=== PATIENT | male | born 1985 | race Caucasian/White ===

== ENCOUNTER 2017-02-21 13:10 | Emergency (ER) | payer MEDICAID ==
[2017-02-21] MEDS ORDERED: Diphtheria,Pertussis(Acell),Tetanus Vaccine 0.5 ML Syringe IM ONE (13:49)
--- NOTE | 2017-02-21 13:58 | EDM.PDOC ---
ED HPI GENERAL MEDICAL PROBLEM - General Chief Complaint: Eye Problems Stated Complaint: RIGHT EYE PAIN Time Seen by Provider: 02/21/17 13:46 Source of Information: Reports: Patient History Limitations: Reports: No Limitations - History of Present Illness INITIAL COMMENTS - FREE TEXT/NARRATIVE: HISTORY AND PHYSICAL: []31-year-old male presents with redness to his right eye History of Present Illness: [Patient states he was seen in a week ago and it of different state and only half his eye was red. He was not given any medications.] Review of Systems: As per history of present illness and below otherwise all systems reviewed and negative. Past medical history: As per history of present illness and as reviewed below otherwise noncontributory. Surgical history: As per history of present illness and as reviewed below otherwise noncontributory. Social history: No reported history of drug or alcohol abuse. Family history: As per history of present illness and as reviewed below otherwise noncontributory. Physical exam: Alert and oriented male answering questions appropriately complaint by his . HEENT: Atraumatic, normocehpalic, pupils reactive, negative for conjunctival pallor or scleral icterus, mucous membranes moist, throat clear, neck supple, nontender, trachea midline. Right eye is mildly edematous is beefy red. Watery no exudate. Lungs: Clear to auscultation, breath sounds equal bilaterally, chest non tender. Heart: S1S2, regular, negative for clicks, rubs, or JVD. Extremities: Atraumatic, negative for cords or calf pain. Neurovascular unremarkable. Neuro: Awake, alert, oriented. Cranial nerves II through XII unremarkable. Cerebellum unremarkable. Motor and sensory unremarkable throughout. Exam nonfocal. Discussed case with Dr. Chaudhry and he has agreed to see him at his clinic at 2: 45 PM Diagnostics: [] Therapeutics: [] Impression: [Infection to right eye] Plan: [Discharged to be evaluated at [facility] ] Definitive disposition and diagnosis as appropriate pending reevaluation and review of above. Right Eye Pain Score (Numeric/FACES): 2 - Related Data Allergies Allergy/AdvReac Type Severity Reaction Status Date / Time No Known Allergies Allergy Verified 02/21/17 13:50 Home Meds: Home Meds Etanercept [Enbrel] 50 mg IM WEEKLY 02/21/17 [History] ED ROS GENERAL - Review of Systems Review Of Systems: ROS reveals no pertinent complaints other than HPI. ED EXAM GENERAL W FULL EYE - Physical Exam Exam: See Below (see dictation) Course - Vital Signs Last Recorded V/S: Last Vital Signs Temp 36.7 C 02/21/17 13:48 Pulse 70 02/21/17 13:48 Resp 18 02/21/17 13:48 BP 129/62 02/21/17 13:48 Pulse Ox 97 02/21/17 13:48 - Orders/Labs/Meds Orders: Active Orders 24 hr Category Date Time Status Vaccines to be Administered [RC] PER UNIT ROUTINE Care 02/21/17 13:50 Inactive Meds: Medications Discontinued Medications Generic Name Dose Route Start Last Admin Trade Name Freq PRN Reason Stop Dose Admin Diphtheria/Tetanus/Acell Pertussis 0.5 ml 02/21/17 13:49 Adacel IM 02/21/17 13:50 .ONCE ONE Departure - Departure Time of Disposition: 14:27 Disposition: Home, Self-Care 01 Condition: Fair Clinical Impression: Conjunctivitis Qualifiers: Conjunctivitis type: acute Acute conjunctivitis type: unspecified Laterality: right Qualified Code(s): H10.31 - Unspecified acute conjunctivitis, right eye - Discharge Information Referrals: PCP,None [Primary Care Provider] - Forms: ED Department Discharge - My Orders Last 24 Hours: My Active Orders 02/21/17 13:50 Vaccines to be Administered [RC] PER UNIT ROUTINE - Assessment/Plan Last 24 Hours: My Active Orders 02/21/17 13:50 Vaccines to be Administered [RC] PER UNIT ROUTINE
== END 2017-02-21 14:40 | disposition home or self-care (01) ==
LOC: MW.ED 13:10
DX: H10.31 Unspecified acute conjunctivitis, right eye (principal); H44.001 Unspecified purulent endophthalmitis, right eye
CPT/HCPCS: 99282

== ENCOUNTER 2017-03-30 12:07 | Emergency (ER) | payer MEDICAID ==
[2017-03-30] MEDS ORDERED: Ondansetron 4 MG Tab.DIS PO ONE (12:20)
--- NOTE | 2017-03-30 12:20 | EDM.PDOC ---
ED HPI GENERAL MEDICAL PROBLEM - General Chief Complaint: Gastrointestinal Problem Stated Complaint: STOMACH BUG Time Seen by Provider: 03/30/17 12:13 Source of Information: Reports: Patient History Limitations: Reports: No Limitations - History of Present Illness INITIAL COMMENTS - FREE TEXT/NARRATIVE: History of present illness: []Patient awoke yesterday morning with vomiting and diarrhea. He had about 10 episodes of nonbloody diarrhea yesterday and 3 episodes of vomiting this morning. He denies any fevers but had severe chills last night. He took an ibuprofen tonight was able to sleep. Patient does have a history of rheumatoid arthritis and GERD. Review of systems: As per history of present illness and below otherwise all systems reviewed and negative. Past medical history: As per history of present illness and as reviewed below otherwise noncontributory. Surgical history: As per history of present illness and as reviewed below otherwise noncontributory. Social history: No reported history of drug or alcohol abuse. Family history: As per history of present illness and as reviewed below otherwise noncontributory. Physical exam: General: Well developed, well nourished in NAD HEENT: Atraumatic, normocephalic, pupils reactive, negative for conjunctival pallor or scleral icterus, mucous membranes moist, throat clear, neck supple, nontender, trachea midline. Lungs: Clear to auscultation, breath sounds equal bilaterally, chest nontender. Heart: S1S2, regular, negative for clicks, rubs, or JVD. Abdomen: Soft, nondistended, nontender. Negative for masses or hepatosplenomegaly. Negative for costovertebral tenderness. Pelvis: Stable nontender. Genitourinary: Deferred. Rectal: Deferred. Extremities: Atraumatic, negative for cords or calf pain. Neurovascular unremarkable. Neuro: Awake, alert, oriented. Cranial nerves II through XII unremarkable. Cerebellum unremarkable. Motor and sensory unremarkable throughout. Exam nonfocal. Diagnostics: [] Therapeutics: []Zofran Impression: []Vomiting diarrhea Plan: []Zofran for nausea increase fluids follow-up with PMD as needed Definitive disposition and diagnosis as appropriate pending reevaluation and review of above. Abdominal Pain Score (Numeric/FACES): 6 - Related Data Allergies Allergy/AdvReac Type Severity Reaction Status Date / Time No Known Allergies Allergy Verified 03/30/17 12:18 Home Meds: Home Meds Etanercept [Enbrel] 50 mg IM WEEKLY 02/21/17 [History] Ondansetron HCl [Zofran] 4 mg PO Q6HR PRN #12 tablet 03/30/17 [Rx] Past Medical History - Past Health History Medical/Surgical History: Denies Medical/Surgical History Musculoskeletal History: Reports: RA Immunologic History: Reports: Immunosuppression - Infectious Disease History Infectious Disease History: Reports: Chicken Pox Social & Family History - Family History Family Medical History: Noncontributory - Tobacco Use Smoking Status *Q: Never Smoker - Recreational Drug Use Recreational Drug Use: No ED ROS GENERAL - Review of Systems Review Of Systems: See Below (See history of present illness) ED EXAM, GENERAL - Physical Exam Exam: See Below (See history of present illness) Course - Vital Signs Last Recorded V/S: Last Vital Signs Temp 98.2 F 03/30/17 12:16 Pulse 101 H 03/30/17 12:16 Resp 16 03/30/17 12:16 BP 116/80 03/30/17 12:16 Pulse Ox 97 03/30/17 12:16 - Orders/Labs/Meds Meds: Medications Discontinued Medications Generic Name Dose Route Start Last Admin Trade Name Freq PRN Reason Stop Dose Admin Ondansetron HCl 4 mg 03/30/17 12:20 03/30/17 12:45 Zofran Odt PO 03/30/17 12:21 4 mg ONETIME ONE Administration Departure - Departure Time of Disposition: 13:34 Disposition: Home, Self-Care 01 Condition: Good Clinical Impression: Vomiting and diarrhea - Discharge Information Prescriptions: Ondansetron HCl [Zofran] 4 mg PO Q6HR PRN #12 tablet PRN Reason: Nausea Referrals: PCP,None [Primary Care Provider] - Forms: ED Department Discharge Additional Instructions: The following information is given to patients seen in the emergency department who are being discharged to home. This information is to outline your options for follow-up care. We provide all patients seen in our emergency department with a follow-up referral. The need for follow-up, as well as the timing and circumstances, are variable depending upon the specifics of your emergency department visit. If you don't have a primary care physician on staff, we will provide you with a referral. We always advise you to contact your personal physician following an emergency department visit to inform them of the circumstance of the visit and for follow-up with them and/or the need for any referrals to a consulting specialist. The emergency department will also refer you to a specialist when appropriate. This referral assures that you have the opportunity for follow-up care with a specialist. All of these measure are taken in an effort to provide you with optimal care, which includes your follow-up. Under all circumstances we always encourage you to contact your private physician who remains a resource for coordinating your care. When calling for follow-up care, please make the office aware that this follow-up is from your recent emergency room visit. If for any reason you are refused follow-up, please contact the [facility] Emergency Department at and asked to speak to the emergency department charge nurse. Lenin as directed increase fluids as tolerated and follow-up with P M.D. as needed [facility] [address] [place] [id number]
== END 2017-03-30 14:01 | disposition home or self-care (01) ==
LOC: MW.ED 12:07
DX: R11.10 Vomiting, unspecified (principal); R19.7 Diarrhea, unspecified; M06.9 Rheumatoid arthritis, unspecified
CPT/HCPCS: 99283; A9270

== ENCOUNTER 2017-04-07 04:57 | Emergency (ER) | payer MEDICAID ==
[2017-04-07] MEDS ORDERED: Ketorolac 60 MG/2 ML SDV IM ONE (05:22)
--- NOTE | 2017-04-07 05:22 | EDM.PDOC ---
ED HPI GENERAL MEDICAL PROBLEM - General Chief Complaint: Fever Stated Complaint: COLD/DIZZY Time Seen by Provider: 04/07/17 05:05 Source of Information: Reports: Patient History Limitations: Reports: No Limitations - History of Present Illness INITIAL COMMENTS - FREE TEXT/NARRATIVE: HISTORY AND PHYSICAL: History of present illness: 31-year-old male presenting to the emergency department with chief complaint of cough, nausea, vomiting, diarrhea 3 days. Patient states that for past 3 days he has had increasing symptoms of nausea and vomiting. States he has not vomited today but did have one episode of diarrhea. His cough is nonproductive. He denies any overt fever but states that he has had chills with some night sweats. He has also had increasing sore throat throughout these last 3 days. He is currently complaining of a diffuse headache that he states is worse secondary to his cough and upper respiratory congestion. States he was sick and did visit the emergency room on 03/30/17 for a "GI bug" during that episode was seen here secondary to repeated episodes of diarrhea. He feels that he did get better after that episode with fluid hydration but then came down with the above symptoms. Patient has no history of cardiopulmonary disease and currently denies any chest pain, palpitations, shortness of breath, single episodes, focal neurologic deficits, abdominal pain , dysuria, or leg pain. Patient did not receive an influenza vaccine this year. Review of systems: As per history of present illness and below otherwise all systems reviewed and negative. Past medical history: As per history of present illness and as reviewed below otherwise noncontributory. Surgical history: As per history of present illness and as reviewed below otherwise noncontributory. Social history: No reported history of drug or alcohol abuse. Family history: As per history of present illness and as reviewed below otherwise noncontributory. Physical exam: HEENT: Mild tonsillar erythema without exudate or swelling. Atraumatic, normocephalic, pupils reactive, negative for conjunctival pallor or scleral icterus, mucous membranes moist, neck supple, nontender, trachea midline. Lungs: Clear to auscultation, breath sounds equal bilaterally, chest nontender. Heart: S1S2, regular, negative for clicks, rubs, or JVD. Abdomen: Soft, nondistended, nontender. Negative for masses or hepatosplenomegaly. Negative for costovertebral tenderness. Pelvis: Stable nontender. Genitourinary: Deferred. Rectal: Deferred. Extremities: Atraumatic, negative for cords or calf pain. Neurovascular unremarkable. Neuro: Awake, alert, oriented. Cranial nerves II through XII unremarkable. Cerebellum unremarkable. Motor and sensory unremarkable throughout. Exam nonfocal. Diagnostics: Rapid strep-Negative Influenza-Negative Therapeutics: Impression: Viral upper respiratory tract infection Rapid strep and influenza were both negative. Patient most likely has a acute viral upper respiratory tract infection. The patient was given a prescription for Flonase, Afrin with instructions to use 2 puffs each nostril twice daily for a maximum of 5 days. In addition gave a prescription for Tessalon Perles for his cough. Patient was discharged in good condition with instructions to follow-up with primary care physician as well as return to emergency department if he had any return or worsening symptoms. Definitive disposition and diagnosis as appropriate pending reevaluation and review of above. head/throat Pain Score (Numeric/FACES): 5 - Related Data Allergies Allergy/AdvReac Type Severity Reaction Status Date / Time No Known Allergies Allergy Verified 04/07/17 05:10 Home Meds: Home Meds Etanercept [Enbrel] 50 mg IM WEEKLY 02/21/17 [History] Ondansetron HCl [Zofran] 4 mg PO Q6HR PRN #12 tablet 03/30/17 [Rx] Benzonatate [Tessalon Perle] 100 mg PO TID #12 capsule 04/07/17 [Rx] Past Medical History - Past Health History Medical/Surgical History: Denies Medical/Surgical History Musculoskeletal History: Reports: RA Immunologic History: Reports: Immunosuppression - Infectious Disease History Infectious Disease History: Reports: Chicken Pox Social & Family History - Family History Family Medical History: Noncontributory - Tobacco Use Smoking Status *Q: Never Smoker - Recreational Drug Use Recreational Drug Use: No ED ROS GENERAL - Review of Systems Review Of Systems: See Below ED EXAM, GENERAL - Physical Exam Exam: See Below Course - Vital Signs Last Recorded V/S: Last Vital Signs Temp 99.5 F 04/07/17 05:05 Pulse 96 04/07/17 05:05 Resp 18 04/07/17 05:05 BP 115/63 04/07/17 05:05 Pulse Ox 96 04/07/17 05:05 - Orders/Labs/Meds Orders: Active Orders 24 hr Category Date Time Status CULTURE STREP A CONFIRMATION [RM] Stat Lab 04/07/17 05:15 Results STREP SCRN A RAPID W CULT CONF [RM] Stat Lab 04/07/17 05:15 Results Meds: Medications Discontinued Medications Generic Name Dose Route Start Last Admin Trade Name Frebryson PRN Reason Stop Dose Admin Ketorolac Tromethamine 60 mg 04/07/17 05:22 04/07/17 05:44 Toradol IM 04/07/17 05:23 Not Given ONETIME ONE Departure - Departure Time of Disposition: 06:50 Disposition: Home, Self-Care 01 Condition: Good Clinical Impression: Viral upper respiratory illness - Discharge Information Prescriptions: Benzonatate [Tessalon Perle] 100 mg PO TID #12 capsule Referrals: PCP,None [Primary Care Provider] - Forms: ED Department Discharge Additional Instructions: The following information is given to patients seen in the emergency department who are being discharged to home. This information is to outline your options for follow-up care. We provide all patients seen in our emergency department with a follow-up referral. The need for follow-up, as well as the timing and circumstances, are variable depending upon the specifics of your emergency department visit. If you don't have a primary care physician on staff, we will provide you with a referral. We always advise you to contact your personal physician following an emergency department visit to inform them of the circumstance of the visit and for follow-up with them and/or the need for any referrals to a consulting specialist. The emergency department will also refer you to a specialist when appropriate. This referral assures that you have the opportunity for follow-up care with a specialist. All of these measure are taken in an effort to provide you with optimal care, which includes your follow-up. Under all circumstances we always encourage you to contact your private physician who remains a resource for coordinating your care. When calling for follow-up care, please make the office aware that this follow-up is from your recent emergency room visit. If for any reason you are refused follow-up, please contact the [facility] Emergency Department at and asked to speak to the emergency department charge nurse. [facility] [address] [place] [id number] - My Orders Last 24 Hours: My Active Orders 04/07/17 05:15 CULTURE STREP A CONFIRMATION [RM] Stat STREP SCRN A RAPID W CULT CONF [RM] Stat - Assessment/Plan Last 24 Hours: My Active Orders 04/07/17 05:15 CULTURE STREP A CONFIRMATION [RM] Stat STREP SCRN A RAPID W CULT CONF [] Stat
== END 2017-04-07 07:16 | disposition home or self-care (01) ==
LOC: MW.ED 04:57
DX: J06.9 Acute upper respiratory infection, unspecified (principal)
CPT/HCPCS: 87081; 87804; 87880; 99283